=== PATIENT | male | born 1975 | race Caucasian/White ===

== ENCOUNTER 2017-07-30 19:30 | Emergency (ER) | payer BC, OTHER ==
[2017-07-30] MEDS ORDERED: Acetaminophen/HYDROcodone 325-10 MG Tab PO ONE (19:52)
[2017-07-30] MEDS ORDERED: Ibuprofen 200 MG Tab PO ONE (19:53)
[2017-07-30 22:18] VITALS: BP 143/107
--- NOTE | 2017-07-31 03:27 | EDM.PDOC ---
ED HPI GENERAL MEDICAL PROBLEM - General Chief Complaint: Lower Extremity Injury/Pain Stated Complaint: Left foot pain Time Seen by Provider: 07/30/17 19:45 Source of Information: Reports: Patient History Limitations: Reports: No Limitations - History of Present Illness INITIAL COMMENTS - FREE TEXT/NARRATIVE: Pt. has a history of "flat feet" and states that he has problems with chronic foot pain. 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 He states that when he took his boots off, he began experiencing severe pain in the ball and arch of his L foot. He denies any trauma to the foot and states that he has not been exercising or overusing his feet. Onset: Today Location: Reports: Lower Extremity, Left Quality: Reports: Throbbing Severity: Severe Improves with: Reports: Immobilization, Rest, Other (elevation) Worsens with: Reports: Movement Associated Symptoms: Reports: No Other Symptoms bottom, ball of left foot Pain Score (Numeric/FACES): 3 - Related Data Allergies Allergy/AdvReac Type Severity Reaction Status Date / Time No Known Allergies Allergy Verified 07/30/17 22:19 Home Meds: Home Meds Lisinopril/Hydrochlorothiazide [Lisinopril-Hctz 10-12.5 mg Tab] 1 tab PO DAILY 07/30/17 [History] Past Medical History Cardiovascular History: Reports: Hypertension Review of Systems - Review of Systems Review Of Systems: See Below Musculoskeletal: Reports: Other (non-traumatic pain to ball and arch of foot) ED EXAM, GENERAL - Physical Exam Exam: See Below Extremities: Other (pt. has a very flat foot which is exquisitely tender on palpation of the mid forefoot and arch. No erythema, crepitus or deformity noted. His ROM is diminished.) Course - Vital Signs Last Recorded V/S: Last Vital Signs Temp 36.9 C 07/30/17 19:30 Pulse 102 H 07/30/17 20:15 Resp 20 07/30/17 19:30 BP 143/107 H 07/30/17 20:15 Pulse Ox 100 07/30/17 19:30 - Orders/Labs/Meds Orders: Active Orders 24 hr Category Date Time Status Foot Comp Min 3V Lt [CR] Stat Exams 07/30/17 19:54 Taken Meds: Medications Discontinued Medications Generic Name Dose Route Start Last Admin Trade Name Freq PRN Reason Stop Dose Admin Hydrocodone Bitart/Acetaminophen 1 tab 07/30/17 19:52 Beverly 325-10 Mg PO 07/30/17 19:53 ONETIME ONE Ibuprofen 600 mg 07/30/17 19:53 07/30/17 20:08 Motrin PO 07/30/17 19:54 600 mg ONETIME ONE Administration - Radiology Interpretation Free Text/Narrative:: No obvious fracture or dislocation noted. Departure - Departure Time of Disposition: 20:20 Disposition: Home, Self-Care 01 Condition: Good Clinical Impression: Plantar fasciitis - Discharge Information Instructions: Plantar Fasciitis, Plantar Fasciitis With Rehab-SportsMed Referrals: Dilip Cody PA-C [Primary Care Provider] - Forms: ED Department Discharge Additional Instructions: Home to rest. Wear footwear with better arch support if possible. Ibuprofen 600mg every 6 hours. Do the plantar fasciitis exercises that are outlined on the discharge paperwork. Follow-up with podiatry or primary care in 7-10 days; sooner if not gradually improving. - My Orders Last 24 Hours: My Active Orders 07/30/17 19:54 Foot Comp Min 3V Lt [CR] Stat - Assessment/Plan Last 24 Hours: My Active Orders 07/30/17 19:54 Foot Comp Min 3V Lt [CR] Stat
== END 2017-07-30 21:30 | disposition home or self-care (01) ==
LOC: VM.ED 19:30
DX: M72.2 Plantar fascial fibromatosis (principal)
CPT/HCPCS: 73630; 99283; A9270

== ENCOUNTER 2019-03-31 08:44 | Day surgery (SDC) | payer OTHER ==
[~2019-03-31 08:44] MED LIST: Lactated Ringers 1,000 ML IV SCH; Sodium Chloride 0.9% 10 ML Syringe FLUSH PRN
[2019-03-31] MEDS ORDERED: Lidocaine 4% 5 ML Amp ONE (08:59)
[2019-03-31] MEDS ORDERED: Midazolam 1 MG/ML 2 ML SDV ONE (09:22)
[2019-03-31] MEDS ORDERED: Propofol 200 MG/20 ML SDV ONE (09:22)
[2019-03-31] MEDS ORDERED: fentaNYL 100 MCG/2 ML SDV ONE (09:22)
[2019-03-31 11:48] VITALS: BP 108/75
--- NOTE | 2019-03-31 13:02 | OR ---
SURGERY DATE: 03/31/2019. REFERRING PROVIDER: LOKI Velazquez. PRE-OPERATIVE DIAGNOSES: 1. Gastroesophageal reflux disease. 2. Dysphagia with painful swallowing and sensation of food getting stuck in the mid to lower sternal area. 3. Chewing tobacco use with swallowing of the spit. POST-OPERATIVE DIAGNOSIS: 1. 4 cm sliding-type hiatal hernia with moderate esophagitis and streaky inflammation up the esophagus for 5 to 10 cm. Cold biopsy x4 bites taken from the GE junction. 2. Moderate gastritis with a couple of areas of superficial ulceration. Antral biopsy x2 bites taken. PROCEDURE: Esophagogastroduodenoscopy with cold biopsy x2 areas. SURGEON: Luca Stock M.D. ANESTHESIA: Monitored anesthesia care. Asad is a 43-year-old male, who was brought to the endoscope suite after discussion of risks and benefits (including but not limited to reaction to medication, bleeding, infection, aspiration, perforation). Informed consent was obtained for monitored anesthesia care and esophagogastroduodenoscopy along with possible biopsy and/or dilatation. Pre-procedure exam including oral cavity was unremarkable. IV, oxygen, and monitors were placed. Topical anesthesia consisting of Cetacaine spray was used to numb the throat. Patient was placed in the left lateral position and sedation was administered. A bite block was placed gently and scope lightly lubricated and passed through the bite block and over the tongue. Hypopharynx and vocal cords were visualized and unremarkable. Scope was passed through the cricopharynx and into the esophagus. The scope was then passed through the distal esophagus and the GE junction was visualized and photographed. The GE junction revealed a 4 cm sliding-type hiatal hernia with moderate esophagitis and streaky inflammation for 5 to 10 cm above this. Cold biopsy x4 bites taken on the way out. Vocal cords were visualized. The scope was advanced into the stomach and gastric chase was suctioned. Pylorus was identified and intubated and then the scope was advanced to the third portion of the duodenum. The second and third portions of the duodenum were unremarkable. The duodenal bulb was visualized and unremarkable. The scope was brought back into the stomach. The pylorus and the antrum revealed were remarkable for moderate inflammation. Cold biopsy x2 bites was taken from this area to check for H. pylori and sent for path from the antrum using 2 bites of the cold forceps. The scope was retroflexed to visualize the angularis, fundus, body, and cardia. These revealed some moderated gastritis with a couple of areas of superficial ulceration. No active bleeding was seen. The stomach was desufflated of air and then the scope was slowly withdrawn, and the esophagus was closely visualized during withdrawal all the way into the posterior pharynx. No significant strictures were seen. The GE junction had slight ringed appearance to it, but I suspect this is mostly due to the inflammation present. Scope passed easily. In the upper esophagus there was an area of heterotopic type mucosa. Cold biopsy x2 bites was taken of this area and sent for path. The patient tolerated the procedure well and went to recovery in stable condition. The patient was monitored until at baseline status. Findings and discharge instructions were reviewed and the patient was discharged in good condition. COMPLICATIONS: None TOTAL TIME: 13 minutes. ESTIMATED BLOOD LOSS: About 2 mL. RECOMMENDATIONS/FOLLOW-UP: Recommend the patient continue on his Nexium. If symptoms are not resolving after 4-8 weeks of PPI, consider other potential etiology of his abdominal pain. We will await results with path report, and send out letter to the patient. In the meantime, I am going to start him on omeprazole 40 mg daily. I have recommended avoidance of NSAIDs along with smoking cessation. We will consider repeat scope in 2 to 3 months to ensure resolution of findings and make sure that the GE junction does not need to be dilated once inflammation resolves. I would like to kindly thank Dilip Cody for this referral. DMB: 03/31/2019 12:19:43 MODL: 03/31/2019 12:38:24 /[id number]
== END 2019-03-31 12:24 | disposition home or self-care (01) ==
LOC: VM.SDS 08:44
PROVIDERS: ATTEND Family Medicine
DX: K21.0 Gastro-esophageal reflux disease with esophagitis (principal); K29.50 Unspecified chronic gastritis without bleeding; K44.9 Diaphragmatic hernia without obstruction or gangrene; R61 Generalized hyperhidrosis; F32.9 Major depressive disorder, single episode, unspecified; F17.220 Nicotine dependence, chewing tobacco, uncomplicated; Z91.048 Other nonmedicinal substance allergy status; Z98.890 Other specified postprocedural states; Z79.899 Other long term (current) drug therapy
CPT/HCPCS: 43239; J2250; J2704; J3010; J7120

== ENCOUNTER 2021-05-06 09:37 | Emergency (ER) | payer OTHER ==
[2021-05-06 10:36] VITALS: BP 106/81; PULSE 62
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
== END 2021-05-06 11:55 | disposition home or self-care (01) ==
LOC: VM.ED 09:37
DX: S92.311A Displaced fracture of first metatarsal bone, right foot, initial encounter for closed fracture (principal); I10 Essential (primary) hypertension; Z91.048 Other nonmedicinal substance allergy status; Z79.899 Other long term (current) drug therapy; Y04.0XXA Assault by unarmed brawl or fight, initial encounter
CPT/HCPCS: 73600-RT; 73630-RT; 99283; 99283-25

== ENCOUNTER 2021-05-07 15:35 | Emergency (ER) | payer OTHER ==
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
--- NOTE | 2021-05-07 16:29 | CR ---
[id number] RAD/RAD Hand Right 3V EXAM: 3 VIEWS RIGHT HAND. INDICATION: PAIN IN DISTAL 3RD MT AREA. COMPARISON: None. DISCUSSION: No fracture, dislocation or other osseous abnormality. IMPRESSION: 1. No acute osseous abnormalities. Matthias Mckinney DO 05/07/21 [id number] Thank you for allowing us to participate in the care of your patient.
--- NOTE | 2021-05-07 16:29 | CR ---
[id number] RAD/RAD Foot Left 2V EXAM: 2 VIEWS LEFT FOOT. INDICATION: PAIN TO BALL OF LEFT FOOT. COMPARISON: None. DISCUSSION: No fracture, dislocation or other acute osseous abnormality. Mild degenerative changes of the first metatarsal phalangeal joint. IMPRESSION: 1. No acute osseous abnormalities. Matthias Mckinney DO 05/07/21 [id number] Thank you for allowing us to participate in the care of your patient.
[2021-05-07 17:26] VITALS: BP 138/71; PULSE 75
== END 2021-05-07 16:41 | disposition home or self-care (01) ==
LOC: VM.ED 15:35
DX: S90.32XA Contusion of left foot, initial encounter (principal); S60.221A Contusion of right hand, initial encounter; I10 Essential (primary) hypertension; Z91.09 Other allergy status, other than to drugs and biological substances; Y04.0XXA Assault by unarmed brawl or fight, initial encounter
CPT/HCPCS: 73130-RT; 73620-LT; 99283; 99283-25

== ENCOUNTER 2025-08-31 07:48 | Day surgery (SDC) | payer OTHER ==
[2025-08-31] MEDS: Lactated Ringers 1,000 ML IV SCH (08:08)
[2025-08-31] MEDS ORDERED: Propofol 200 MG/20 ML SDV ONE (08:26)
[2025-08-31] MEDS ORDERED: fentaNYL 100 MCG/2 ML SDV ONE (08:26)
[2025-08-31 10:41] VITALS: BP 100/62; PULSE 61
== END 2025-08-31 10:56 | disposition home or self-care (01) ==
LOC: VM.SDS 07:48
PROVIDERS: ATTEND Family Medicine
DX: Z12.11 Encounter for screening for malignant neoplasm of colon (principal); I10 Essential (primary) hypertension; F41.8 Other specified anxiety disorders; E66.01 Morbid (severe) obesity due to excess calories; F17.290 Nicotine dependence, other tobacco product, uncomplicated; Z80.0 Family history of malignant neoplasm of digestive organs; Z68.33 Body mass index [BMI] 33.0-33.9, adult; Z79.899 Other long term (current) drug therapy
CPT/HCPCS: J2704; J3010; J7120